=== PATIENT | female | born 1950 | race Caucasian/White ===

== ENCOUNTER → 2020-12-15 07:50 | Outpatient (BNVA) | payer SELFPAY | PROVIDERS: Family Provider Internal Medicine; Visit Provider Internal Medicine | DX: I10 Essential (primary) hypertension (principal); F03.90 Unspecified dementia, unspecified severity, without behavioral disturbance, psychotic disturbance, mood disturbance, and anxiety; Z01.812 Encounter for preprocedural laboratory examination; E03.9 Hypothyroidism, unspecified | CPT/HCPCS: 80053; 82607; 82746; 84443; 85025; 87635 ==

== ENCOUNTER 2023-03-11 17:49 | Inpatient (IN) | payer MEDICARE, MEDICAID, SELFPAY ==
[2023-03-11] VITALS (31 sets, daily range): BP systolic 117–152; BP diastolic 79–110; PULSE 89–123; RESP 17–39; O2SAT 96–100; BMI 16.9
--- NOTE | 2023-03-11 17:52 | W.ED.SOB ---
HPI - SOB/Dyspnea General: Chief Complaint: Shortness of Breath/Dyspnea Stated Complaint: RESPIRATORY DISTRESS/ POSSIBLE ASPIRATION Time Seen by Provider: 03/11/23 17:52 Limitations: altered mental status History of Present Illness: HPI Narrative: Ms. Ortega is a 72-year-old lady with reported history of dementia presenting to the emergency department for respiratory symptoms. The patient herself appears to regard appropriately however does not appear to understand or answer questions. She apparently was drinking a protein shake and later was noted to have emesis with possible aspiration. Initially low oxygen saturations however improved on supplemental oxygen and wean down to 2 L via nasal cannula. Patient has no reported baseline oxygen requirement. History otherwise limited by patient mental state. Review of Systems General: Reports: ROS unobtainable due to medical condition and ROS unobtainable due to mental status PFSH ED PFSH: Medical History Aspiration pneumonia At high risk for aspiration Hypertension Hypothyroid long-term resident Surgical History No pertinent past surgical history Family History Other Diabetes Heart disease Social History Smoking and tobacco status: never smoked Alcohol intake: former Physical Exam Const: COMMON NORMALS: alert GENERAL APPEARANCE: cooperative, well developed and ill appearing HENMT: COMMON NORMALS: normocephalic and atraumatic HEAD & SCALP: normocephalic and atraumatic Eye: COMMON NORMALS: conjunctivae normal CONJUNCTIVA: Yes conjunctivae normal SCLERA: sclerae normal Neck/C-Spine: COMMON NORMALS: supple GENERAL: Yes trachea midline Resp: EFFORT & INSPECTION: Yes tachypneic AUSCULTATION: rhonchi Cardio: COMMON NORMALS: regular rate and regular rhythm RATE: regular rate and tachycardic RHYTHM: regular rhythm GI: COMMON NORMALS: Soft to palpation PALPATION: Yes Soft to palpation and No Tenderness to palpation present (GI) PERCUSSION: normal to percussion Extremity: GENERAL: Yes normal exam except as noted and No edema Neuro: COMMON NORMALS: moves all extremities SENSORIUM/ORIENTATION: Yes alert and Yes Orientation impaired Psych: MEMORY/COGNITION: Yes memory grossly impaired and Yes cognition grossly impaired Course Vital Signs: Vital signs: Vital Signs Temperature 99.0 F 04/20/23 19:43 Pulse Rate 60 03/14/23 21:03 Respiratory Rate 16 03/14/23 21:03 Blood Pressure 167/84 03/14/23 19:43 Pulse Oximetry 98 03/14/23 21:03 Oxygen Delivery Me thod Room Air 03/14/23 21:03 Oxygen Flow Rate 1 03/13/23 08:51 MDM - SOB/Dyspnea Medical Decision Making 72-year-old lady presenting with altered mental status and concern over aspiration. She is tachypneic, requiring oxygen, and tachycardic with chronically ill appearance on exam. EKG demonstrates sinus tachycardia, normal axis and intervals, no STEMI. Labs with no significant hematologic abnormalities. ABG with respiratory alkalosis. Metabolic panel with dehydration and hypokalemia. Initial lactic acid is mildly elevated. Negative range 2 or delta troponin. Urinalysis pending Head CT negative for acute intracranial pathology. Chest x-ray unrevealing of etiology of symptoms. CT imaging with no PE, she does have pneumonia likely aspiration pneumonia. During ED course patient treated with IV fluids and antibiotics. Upon further clarification of clinical history with family she is nonverbal at baseline. She has chronic issues of aspiration. Challenging situation given baseline mental status however admission is most appropriate given new oxygen requirement and findings on exam and laboratory studies. Family is agreeable. The results of ED evaluation were discussed with the family including plan for admission due to requirement for level of care not available if discharged to prevent significant worsening/deterioration. Family agreeable with plan. Discussed with hospitalist service who was agreeable to admit patient. Medical Records I reviewed the patient's medical records. Lab Data I reviewed the patient's lab results. 03/13/23 05:23 03/13/23 05:23 Labs/Radiology: Radiology Impressions Chest X-Ray 03/11/23 17:58 IMPRESSION: Vague densities at medial left base raise question of retrocardiac abnormality; PA and lateral views may be helpful in improving evaluation of this region. Chest CTA 03/11/23 18:34 IMPRESSION: 1. No pulmonary embolus identified. 2. Ohkf-zxsvecm-mrfe-right lower lobe known pneumonia with bronchial wall thickening in distal bronchial mucoid impaction. Correlate for possible aspiration clinically. Head CT 03/11/23 18:34 IMPRESSION: Left maxillary sinus opacification with suspicion of mucocele. Generalized cerebral atrophy relatively prominent for age. No acute intracranial findings. Right middle cranial fossa arachnoid cyst unchanged. Laboratory Results WBC 8.6 10^3/uL (4.0-10.0) 03/11/23 17: RBC 5.07 10^6/uL (4.1-5.3) 03/11/23 17: Hgb 15.0 g/dL (11.5-15.3) 03/11/23: Hct 49.5 % (37.0-47.0) H 03/11/23 17: MCV 97.6 fl (81-99) 03/11/23: MCH 29.6 pg (28.0-34.0) 03/11/23: MCHC 30.3 g/dL (30.0-36.0) 03/11/23: RDW 13.4 % (12.1-15.1) 03/11/23: Plt Count 492 10^3/cmm (130-400) H 03/11/23: MPV 10.1 fL (7.4-10.4) 03/11/23: Neut % (Auto) 60.9 % 03/11/23: Lymph % (Auto) 31.4 % 03/11/23: [place] % (Auto) 5.8 % 03/11/23 17: Eos % (Auto) 0.8 % 03/11/23: Baso % (Auto) 0.6 % 03/11/23: Neut # (Auto) 5.24 10^3/uL (1.8-7.7) 03/11/23: Lymph # (Auto) 2.7 10^3/uL (0.8-4.8) 03/11/23: [place] # (Auto) 0.5 10^3/uL (0.2-0.9) 03/11/23: Eos # (Auto) 0.1 10^3/uL (0.0-0.8) 03/11/23 17: Baso # (Auto) 0.1 10^3/uL (0.0-0.1) 03/11/23:33 Nucleated RBC % (auto) 0 % 03/11/23 17:33 Nucleated RBCs # 0.0 /100WBC 03/11/23 17:33 Specimen Type Arterial 03/11/23 18:05 Sample Site Brachial, left 03/11/23 18:05 ABG pH 7.48 (7.35-7.45) H 03/11/23 18:05 ABG pCO2 35.5 mmHg (35-45) 03/11/23 18:05 ABG pO2 93.2 mmHg (80.0-100.0) 03/11/23 18:05 ABG HCO3 26.6 mmol/L (22-26) H 03/11/23 18:05 ABG Base Excess 3.3 mmol/L (-2.0-2.0) H 03/11/23 18:05 Kem Test N/a 03/11/23 18:05 Hematocrit 46.8 % (37-47) 03/11/23 18:05 O2 Delivery Device Nc 03/11/23 18:05 O2 Liters/Min 2.0 % 03/11/23 18:05 FiO2 28.0 % 03/11/23 18:05 Hotel Recreational Facilities Manager ID rm 03/11/23 18:05 Sodium 151 mmol/L (136-145) H 03/11/23 17:33 Potassium 3.2 mmol/L (3.5-5.1) L 03/11/23 17:33 Chloride 113 mmol/L (98-107) H 03/11/23 17:33 Carbon Dioxide 26 mmol/L (22-29) 03/11/23 17:33 Anion Gap 15.2 (5-19) 03/11/23 17:33 BUN 29 mg/dL (8-23) H 03/11/23 17:33 Creatinine 0.7 mg/dL (0.5-0.9) 03/11/23 17:33 GFR Calculation Not Reportable 03/11/23 17:33 Glucose 116 mg/dL (65-115) H 03/11/23 17:33 POC Glucose 103 mg/dL (70-110) 03/11/23 18:10 Calculated Osmolality 319 mOsm/kg (285-295) H 03/11/23 17:33 Lactate 2.3 mmol/L (0.5-2.2) H 03/11/23 19:58 Calcium 9.7 mg/dL (8.5-10.5) 03/11/23 17:33 Total Bilirubin 0.4 mg/dL (0.15-1.2) 03/11/23 17:33 AST 16 U/L (0-32) 03/11/23 17:33 ALT 23 U/L (0-33) 03/11/23 17:33 Alkaline Phosphatase 101 U/L (35-105) 03/11/23 17:33 Troponin T Baseline 17 ng/L (0-10) H 03/11/23 17:33 Troponin T 120 Minute 12.46 ng/L (0-10) H 03/11/23 19:58 Delta Troponin T -4.54 ABS# (0-10) L 03/11/23 19:58 C-Reactive Protein 12.3 mg/L (0.0-4.9) H 03/11/23 17:33 NT-Pro-B Natriuret Pep 105 pg/mL (0-125) 03/11/23 17:33 Total Protein 7.0 g/dL (6.6-8.7) 03/11/23 17:33 Albumin 3.6 g/dL (3.5-5.2) 03/11/23 17:33 Globulin 3.4 g/dL (1.3-4.6) 03/11/23 17:33 Procalcitonin 0.08 ng/mL (0-0.5) 03/11/23 17:33 TSH 2.76 uIU/mL (0.27-4.20) 03/11/23 17:33 Discharge Plan Discharge Patient Disposition: Admitted As Inpatient Admit Provider: Gerardo Puente Clinical Impression: Aspiration pneumonia, Hypoxia, Dehydration Condition: Stable Coding Level of Care Code ED Ship Engineer for [place]
--- NOTE | 2023-03-11 17:58 | XRR_ITS ---
PROCEDURE INFORMATION: Exam: XR Chest Exam date and time: 03/11/2023 6:28 PM Age: 72 years old Clinical indication: Pain; Other: Respiratory distress; Additional info: SOB TECHNIQUE: Imaging protocol: Radiologic exam of the chest. Views: 1 view. COMPARISON: No relevant prior studies available. FINDINGS: Lungs: There are findings raising consideration for emphysema. Vague densities at medial left base raise question of retrocardiac abnormality; PA and lateral views may be helpful in improving evaluation of this region. Pleural spaces: Unremarkable. No pleural effusion. No pneumothorax. Heart/Mediastinum: Unremarkable. No cardiomegaly. Bones/joints: No acute findings. XR/XR chest 1V portable [id number] IMPRESSION: Vague densities at medial left base raise question of retrocardiac abnormality; PA and lateral views may be helpful in improving evaluation of this region.
[2023-03-11 18:15] LABS: Glucose Point of Care 103 mg/dL (70-110)
[2023-03-11 18:18] LABS: ABG PCO2 35.5 mmHg (35-45); ABG PH Result 7.48 (7.35-7.45); Arterial Blood Gas Hematocrit 46.8 % (37-47); Base Excess ABG 3.3 mmol/L (-2.0-2.0); Blood Gas Sample Site Brachial, left; Blood Gas Sample Type Arterial; HCO3 ABG 26.6 mmol/L (22-26); Oxygen Device NC; PO2 ABG 93.2 mmHg (80.0-100.0)
--- NOTE | 2023-03-11 18:25 | ECG_ITS ---
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 Measurements Intervals [place] Rate: 106 P: 83 [place]: 137 QRS: -5 QRSD: 85 T: 71 QT: 329 QTc: 439 Interpretive Statements SINUS TACHYCARDIA POSSIBLE LEFT ATRIAL ENLARGEMENT [-0.1mV P-WAVE IN V1/V2] POSSIBLE ANTERIOR MYOCARDIAL INFARCTION , PROBABLY OLD [30 ms Q WAVE IN V3/V4, OR R < 0.2 mV IN V4] ABNORMAL RHYTHM ECG No previous ECG available for comparison Electronically Signed On 03-12-2023 14:50:19 CDT by Sly Rizvi M.D. [id number]
--- NOTE | 2023-03-11 18:34 | CTR_ITS ---
PROCEDURE INFORMATION: Exam: CTA Chest With Contrast Exam date and time: 03/11/2023 8:13 PM Age: 72 years old Clinical indication: Tachypnea; Additional info: Hypoxemia, tachycardia, immobility TECHNIQUE: Imaging protocol: Computed tomographic angiography of the chest with contrast. 3D rendering (Not supervised by radiologist): MIP and/or 3D reconstructed images were created by the technologist. Radiation optimization: All CT scans at this facility use at least one of these dose optimization techniques: automated exposure control; mA and/or kV adjustment per patient size (includes targeted exams where dose is matched to clinical indication); or iterative reconstruction. Contrast material: OMNI 350; Contrast volume: 100 ml; Contrast route: INTRAVENOUS (IV); REPORTING DATA: Count of CT and Cardiac NM exams in prior 12 months: This patient has received [address] and 0 known cardiac nuclear medicine studies in the 12 months prior to the current study. COMPARISON: CR (CHEST, ) 03/11/2023 6:28 PM RADIATION DOSE METRICS: Total DLP (mGy-cm): 193.87 FINDINGS: Pulmonary arteries: No central or segmental PE is present. Peripheral PE assessment is limited due to artifact. Aorta: Unremarkable. No aortic aneurysm. No aortic dissection. Lungs: There is debris in the left mainstem bronchus and trachea. There is left lower lobe bronchial mucoid impaction with bronchial wall thickening. Left lower lobe infiltrate is present with patchy posterior right lower lobe infiltrate also seen. Left upper lobe calcified granuloma. Pleural spaces: Unremarkable. No pneumothorax. No pleural effusion. Heart: Small-sized pericardial effusion. Coronary arteries: Moderate coronary artery atherosclerosis. Lymph nodes: Unremarkable. No enlarged lymph nodes. Spleen: Splenic granulomata. Bones/joints: T7 moderate anterior compression fracture is age-indeterminate and may be chronic. Soft tissues: Unremarkable. CT/CT angio chest PE protcl [id number] IMPRESSION: 1. No pulmonary embolus identified. 2. Dacv-lzevhna-hzbv-right lower lobe known pneumonia with bronchial wall thickening in distal bronchial mucoid impaction. Correlate for possible aspiration clinically.
--- NOTE | 2023-03-11 18:34 | CTR_ITS ---
PROCEDURE INFORMATION: Exam: CT Head Without Contrast Exam date and time: 03/11/2023 8:09 PM Age: 72 years old Clinical indication: Altered mental status/memory loss; Additional info: AMS TECHNIQUE: Imaging protocol: Computed tomography of the head without contrast. Radiation optimization: All CT scans at this facility use at least one of these dose optimization techniques: automated exposure control; mA and/or kV adjustment per patient size (includes targeted exams where dose is matched to clinical indication); or iterative reconstruction. REPORTING DATA: Count of CT and Cardiac NM exams in prior 12 months: This patient has received [address] and 0 known cardiac nuclear medicine studies in the 12 months prior to the current study. COMPARISON: MR head wo/w con [id number] 11/07/2018 1:44 PM RADIATION DOSE METRICS: Total DLP (mGy-cm): 1151.88 FINDINGS: Brain: Arachnoid cyst suggested at anterior right middle cranial fossa is unchanged. Generalized cerebral atrophy prominent for age. No findings of intracranial hemorrhage. Cerebral ventricles: Mild increase in ventriculomegaly likely relating to progression of atrophy. Paranasal sinuses: Left maxillary sinus is opacified and there is medial bulging of medial wall of left maxillary sinus. Mastoid air cells: Visualized mastoid air cells are well aerated. Bones/joints: No acute findings. Soft tissues: Unremarkable. CT/CT head wo con* [id number] IMPRESSION: Left maxillary sinus opacification with suspicion of mucocele. Generalized cerebral atrophy relatively prominent for age. No acute intracranial findings. Right middle cranial fossa arachnoid cyst unchanged.
[2023-03-11 18:37] LABS: Basophils # 0.1 10^3/uL (0.0-0.1); Basophils % 0.6 %; Eosinophils # 0.1 10^3/uL (0.0-0.8); Eosinophils % 0.8 %; Hematocrit 49.5 % (37.0-47.0); Lymphocytes # 2.7 10^3/uL (0.8-4.8); Lymphocytes % 31.4 %; Mean Corpuscular HGB Conc 30.3 g/dL (30.0-36.0); Mean Corpuscular Hemoglobin 29.6 pg (28.0-34.0); Mean Corpuscular Volume 97.6 fl (81-99); Mean Platelet Volume 10.1 fL (7.4-10.4); Monocytes # 0.5 10^3/uL (0.2-0.9); Monocytes % 5.8 %; Neutrophils # 5.24 10^3/uL (1.8-7.7); Neutrophils % 60.9 %; Nucleated Red Blood Cells % 0 %; Platelet Count 492 10^3/cmm (130-400); Red Blood Count 5.07 10^6/uL (4.1-5.3); Red Cell Distribution Width 13.4 % (12.1-15.1); White Blood Count 8.6 10^3/uL (4.0-10.0)
[2023-03-11 18:55] LABS: Troponin(5th) Baseline 17 ng/L (0-10)
[2023-03-11 19:03] LABS: NT Pro B Type Natriuretic Pept 105 pg/mL (0-125); Procalcitonin 0.08 ng/mL (0-0.5); Thyroid Stimulating Hormone 2.76 uIU/mL (0.27-4.20)
[2023-03-11 19:22] LABS: Alanine Aminotransferase 23 U/L (0-33); Albumin Level 3.6 g/dL (3.5-5.2); Alkaline Phosphatase 101 U/L (35-105); Anion Gap 15.2 (5-19); Aspartate Amino Transferase 16 U/L (0-32); Blood Urea Nitrogen 29 mg/dL (8-23); C Reactive Protein 12.3 mg/L (0.0-4.9); Calcium 9.7 mg/dL (8.5-10.5); Carbon Dioxide 26 mmol/L (22-29); Chloride 113 mmol/L (98-107); Globulin 3.4 g/dL (1.3-4.6); Glucose 116 mg/dL (65-115); Osmolality Calculated 319 mOsm/kg (285-295); Potassium 3.2 mmol/L (3.5-5.1); Sodium 151 mmol/L (136-145); Total Bilirubin 0.4 mg/dL (0.15-1.2)
[2023-03-11] MEDS: iohexol 350 mg/mL 500 mL Btl (per mL) IV (20:19)
[2023-03-11] MEDS: lactated ringers 1,000 ML 999 ML IV (20:30)
[2023-03-11 20:50] LABS: Lactate (Lactic Acid level) 2.3 mmol/L (0.5-2.2)
[2023-03-11 20:52] LABS: Troponin 5 2HR 12.46 ng/L (0-10); Troponin 5 2HR Delta -4.54 ABS# (0-10)
[2023-03-11] MEDS: cefTRIAXone 1,000 MG in sodium chloride 0.9% (plus) 50 ML 100 MG IV (21:56)
--- NOTE | 2023-03-11 22:39 | PM.HP ---
Providers/Chief Complaint Admitting Physician: Gerardo Puente MD Chief Complaint: RESPIRATORY DISTRESS/ POSSIBLE ASPIRATION History of Present Illness Brenda Ortega is a 72 year old female with as past medical history of hypothyroidism, htn, dementia, non verbal at baseline, who is on dysphagia diet, is somewhat mobile at longterm, who presents of [facility] for hypoxia and shortness of breath. Patient is nonverbal at baseline, history was obtained by family membars at [facility], according to family members patient was [place] [facility] [place], [facility] due to concerns for hypoxia and shortness of breath and elevated blood pressure. No recent falls, or uti, she has a dysphasia diet, but recenyl she primarily has been taking her meal through a straw, and has a worsening appetite. Patient family has agreed on no peg tube. Review of Systems General: Reports: ROS unobtainable due to medical condition and ROS unobtainable due to mental status Medications/Allergies Home Medications Medication Instructions Recorded Confirmed Last Taken Type losartan 100 mg tablet 100 mg PO DAILY #90 tabs 03/30/20 12/15/20 Unknown Rx memantine 10 mg tablet 10 mg PO BID #60 tabs 05/25/20 12/15/20 Unknown Rx amlodipine 2.5 mg tablet 2.5 mg PO DAILY #90 tabs 12/15/20 12/15/20 Unknown Rx levothyroxine 88 mcg tablet 88 mcg PO DAILY #30 tabs 12/21/20 Unknown Rx Allergies Allergy/AdvReac Type Severity Reaction Status Date / Time No Known Allergies Allergy Verified 12/15/20 11:01 PFSH Acute PFSH: Medical History (Updated 03/11/23 @ 22:43 by Gerardo Puente MD) Hypothyroid Surgical History (Updated 03/11/23 @ 22:40 by Gerardo Puente MD) No pertinent past surgical history Family History (Updated 12/15/20 @ 11:06 by RENATA Ramírez) Other Diabetes Heart disease Social History (Updated 12/15/20 @ 11:06 by RENATA Ramírez) Smoking and tobacco status: never smoked Alcohol intake: former Vitals/I&O/Wt Last Vital Signs Pulse 89 03/11/23 20:30 Resp 23 H 03/11/23 20:30 BP 152/110 03/11/23 20:30 Pulse Ox 99 03/11/23 20:30 O2 Del Method Nasal Cannula 03/11/23 18:15 O2 Flow Rate 2 03/11/23 18:15 Physical Exam Const: COMMON NORMALS: no acute distress Eye: COMMON NORMALS: Equal, round and reactive pupils present Neck/C-Spine: COMMON NORMALS: no lymphadenopathy Resp: COMMON NORMALS: normal respiratory effort, No retractions and No use of accessory muscles AUSCULTATION: wheezes Cardio: COMMON NORMALS: regular rate, regular rhythm, S1 normal heart sound present and S2 normal heart sound present RATE: regular rate RHYTHM: regular rhythm HEART SOUNDS: S1 normal heart sound present and S2 normal heart sound present GI: COMMON NORMALS: Normal to inspection, nondistended, normoactive bowel sounds present, Soft to palpation and non-tender PALPATION: Yes Soft to palpation Extremity: COMMON NORMALS: no pedal edema Neuro: OTHER: doesnot follow neurologic testing Data 03/11/23 17:33 03/11/23 17:33 A&P Assessment and plan (1) Aspiration pneumonia: (2) Hypoxia: (3) Dehydration: (4) Hyponatremia: (5) Hypokalemia: (6) NSTEMI (non-ST elevated myocardial infarction): (7) Dementia: Plan Aspiration pneumonia -Aspiration precautions -Keep n.p.o. -Continue Zosyn -Speech therapy eval Hypoxia secondary to aspiration ammonia -Oxygen therapy -Zosyn -DuoNeb as needed Dehydration -IV fluids Hyponatremia -Likely sec to dehydration IV fluids Hypokalemia -Received potassium replacement in the emergency room -Elevated troponins, likely from respiratory failure DNR/DNI Lovenox for DVT prophylaxis Attestations Medical Necessity Statement*: patient requires hospitalization for aspiration pneumonia,hypoxia, inpatient, greater than 2 midnights Diagnoses Aspiration pneumonia J69.0 Hypoxia R09.02 Dehydration E86.0 Hyponatremia E87.1 Hypokalemia E87.6 NSTEMI (non-ST elevated myocardial infarction) I21.4 Dementia F03.90
[2023-03-11] MEDS: doxycycline 100 MG in sodium chloride 0.9% (plus) 100 ML IV (22:40)
[2023-03-11] MEDS: sodium chloride 0.9% 1,000 ML 100 ML IV (22:47)
[2023-03-11] MEDS: lidocaine 1% 5 ML in potassium chloride premix 100 ML 26.25 ML IV (22:49)
--- NOTE | 2023-03-11 23:59 | ECG_ITS ---
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 Measurements Intervals [place] Rate: 77 P: 15 CO: 160 QRS: 39 QRSD: 89 T: 32 QT: 369 QTc: 419 Interpretive Statements SINUS RHYTHM Compared to ECG 03/11/2023 18:25:38 Sinus tachycardia no longer present Myocardial infarct finding no longer present Electronically Signed On 03-12-2023 15:06:00 CDT by Sly Rizvi M.D. [id number]
[2023-03-12] VITALS (14 sets, daily range): BP systolic 144–177; BP diastolic 73–91; PULSE 57–79; RESP 15–18; TEMP 36.5–36.8; O2SAT 95–100
[2023-03-12 00:01] LABS: Troponin 5 6HR 18.19 ng/L (0-10); Troponin 5 6HR Delta 1.19 ng/L (0-12)
[2023-03-12] MEDS: piperacillin-tazobactam 3.375 GM in sodium chloride 0.9% (plus) 50 ML IV ×3 (01:25→18:06)
[2023-03-12] MEDS: enoxaparin 40 mg/0.4 mL Syringe SUBCUT ×2 (01:25→22:01)
[2023-03-12] MEDS: pantoprazole 40 mg SDV IVP ×2 (01:25→22:02)
--- NOTE | 2023-03-12 03:23 | ECG_ITS ---
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 Measurements Intervals [place] Rate: 71 P: 0 NE: 0 QRS: 34 QRSD: 89 T: 211 QT: 484 QTc: 529 Interpretive Statements SUPRAVENTRICULAR RHYTHM ST DEVIATION AND MARKED T-WAVE ABNORMALITY, CONSIDER INFERIOR ISCHEMIA [-0.5+ mV T-WAVE IN II/aVF] Compared to ECG 03/12/2023 00:32:14 Supraventricular rhythm now present T-wave abnormality now present Possible ischemia now present Sinus rhythm no longer present Electronically Signed On 03-12-2023 15:05:51 CDT by Sly Rizvi M.D. [email or web address]/store/[id number]
[2023-03-12 03:34] LABS: Adenovirus Detected (NOT DETECT); Chlamydia Pneumoniae Not Detected (NOT DETECT); Coronavirus 229E,HKU1,NL63,OC4 Not Detected (NOT DETECT); Human Metapneumovirus Not Detected (NOT DETECT); Human Rhinovirus/Enterovirus Not Detected (NOT DETECT); Influenza A Not Detected (NOT DETECT); Influenza A H1 Not Detected (NOT DETECT); Influenza A H1-2009 Not Detected (NOT DETECT); Influenza A H3 Not Detected (NOT DETECT); Influenza B Not Detected (NOT DETECT); Mycoplasma Pneumoniae Not Detected (NOT DETECT); Parainfluenza Virus Type 1 Not Detected (NOT DETECT); Parainfluenza Virus Type 2 Not Detected (NOT DETECT); Parainfluenza Virus Type 3 Not Detected (NOT DETECT); Parainfluenza Virus Type 4 Not Detected (NOT DETECT); Respiratory Syncytial Virus A Not Detected (NOT DETECT); Respiratory Syncytial Virus B Not Detected (NOT DETECT); SARS-COV-2 Not Detected (NOT DETECT)
[2023-03-12 05:50] LABS: Basophils % 0.3 %; Eosinophils # 0.1 10^3/uL (0.0-0.8); Eosinophils % 0.5 %; Hematocrit 42.2 % (37.0-47.0); Hemoglobin 12.6 g/dL (11.5-15.3); Lymphocytes # 2.8 10^3/uL (0.8-4.8); Lymphocytes % 26.8 %; Mean Corpuscular HGB Conc 29.9 g/dL (30.0-36.0); Mean Corpuscular Hemoglobin 29.2 pg (28.0-34.0); Mean Corpuscular Volume 97.9 fl (81-99); Mean Platelet Volume 9.9 fL (7.4-10.4); Monocytes # 0.6 10^3/uL (0.2-0.9); Monocytes % 5.3 %; Neutrophils # 6.89 10^3/uL (1.8-7.7); Neutrophils % 66.8 %; Nucleated Red Blood Cells % 0 %; Platelet Count 365 10^3/cmm (130-400); Red Blood Count 4.31 10^6/uL (4.1-5.3); Red Cell Distribution Width 13.3 % (12.1-15.1); White Blood Count 10.3 10^3/uL (4.0-10.0)
[2023-03-12 06:16] LABS: Anion Gap 9.9 (5-19); Blood Urea Nitrogen 16 mg/dL (8-23); Calcium 8.7 mg/dL (8.5-10.5); Carbon Dioxide 24 mmol/L (22-29); Chloride 119 mmol/L (98-107); Glucose 90 mg/dL (65-115); Magnesium 2.2 mg/dL (1.7-2.3); Osmolality Calculated 309 mOsm/kg (285-295); Phosphorus 2.2 mg/dL (2.5-4.5); Potassium 3.9 mmol/L (3.5-5.1); Sodium 149 mmol/L (136-145); Thyroid Stimulating Hormone 2.51 uIU/mL (0.27-4.20)
--- NOTE | 2023-03-12 08:09 | PC.PHAR ---
pt is from [facility] [phone] from [facility] states she will fax mar and tar
[2023-03-12] MEDS: sodium chloride 0.9% 1,000 ML 100 ML IV (08:55)
[2023-03-12] MEDS: levothyroxine 100 mcg SDV 40 MCG IVP (10:12)
--- NOTE | 2023-03-12 10:38 | PC.CHAP ---
Pastoral Care Encounter/Spiritual Assessment Type of Contact [] Declined stock sorter visit [] Patient/Family/Request visit [] Outpatient visit [] Follow-up visit [] Physician referral [] Code/Alert [x] Routine visit [] Staff referral [] Actively dying [] Patient sleeping [x] Family support [] [] Out of room [] Palliative care [] [] Receiving care in room [] Pre-surgical visit [] Trauma [] Long length of stay [] ICU visit [] Other: Relational/Emotional Strength [x] Patient feels connected with others/family/visitors/staff [] Distress [] Loneliness/isolation [] Abandonment Spirituality of Patient [x] Person of Jenni [] Attends Muslim of their Jenni [x] Believes in Prayer [] Reads Bible or Jehovah'S Witness materials [] There are Spiritual issues to be addressed 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 Interventions [x] Prayer [] Active listening [] Non-anxious presence [x] Spiritual/emotional support [] Crisis/trauma care [] Spiritual counseling [] Bereavement support [] Provided bereavement packet [] Provided Bible/devotional materials [] Provided toy/stuffed animal, coloring book to patient or family member [] Provided Communion [] Anointing/Rumely [] Salvation [] Completed spiritual assessment [] Other: Impact on Illness or Injury [] Angry [] Fearful [] Anxious [] Often cries [] Exhaustion [] Unable to work [] Unable to attend adventist [] Unable to walk/stand [] Unable to read [] Unable to drive [] Unable to eat/drink [] Unable to sleep [] Unable to be with family [] Patient intubated [] Other: Summary Time spent with patient 5 min
[2023-03-12 12:18] LABS: Iron 82 ug/dL (37-145); Percent Saturation 46.5 % (20-50); Total Iron Binding Capacity 176 mcg/dl; Unsaturated Iron Binding 94 ug/dL (112-347)
[2023-03-12 12:33] LABS: Vitamin B12 520 pg/mL (232-1245)
[2023-03-12 12:34] LABS: Folate Level 8.1 ng/mL (4.8-37.3)
[2023-03-12] MEDS: ipratropium-albuterol 3 mL Neb INHALATION ×2 (14:07→21:28)
--- NOTE | 2023-03-12 14:55 | PC.NURSE ---
This nurse assessed what was possible on the NIH stroke scale. Some of the scale was unable to be assessed due to patient being nonverbal at baseline.
--- NOTE | 2023-03-12 16:56 | PM.PN ---
Subjective Subjective: Admitted overnight. H&P and labs appreciated. Examination patient laying comfortably in bed. Awake alert but nonverbal which is patient's baseline. Saturating well on 2 L. Has remained hemodynamically stable and afebrile. Blood pressure slightly elevated. Vitals/I&O/Wt Last Vital Signs Temp 98.0 F 03/12/23 12:00 Pulse 60 03/12/23 14:14 Resp 18 03/12/23 14:11 BP 175/80 03/12/23 12:00 Pulse Ox 100 03/12/23 14:11 O2 Del Method Nasal Cannula 03/12/23 14:11 O2 Flow Rate 2 03/12/23 14:11 03/12/23 03/12/23 03/12/23 06:59 14:59 22:59 Intake Total 255 / 1305 1336.667 / 1336.667 Balance 255 / 1305 1336.667 / 1336.667 Weight last 48 hrs Weight 46.266 kg Physical Exam Const: COMMON NORMALS: no acute distress Eye: COMMON NORMALS: Equal, round and reactive pupils present PUPIL: Yes Equal, round and reactive pupils present Neck/C-Spine: COMMON NORMALS: no lymphadenopathy Resp: COMMON NORMALS: normal respiratory effort, No retractions and No use of accessory muscles AUSCULTATION: wheezes Cardio: COMMON NORMALS: regular rate, regular rhythm, S1 normal heart sound present and S2 normal heart sound present RATE: regular rate RHYTHM: regular rhythm HEART SOUNDS: S1 normal heart sound present and S2 normal heart sound present GI: COMMON NORMALS: Normal to inspection, nondistended, normoactive bowel sounds present, Soft to palpation and non-tender PALPATION: Yes Soft to palpation Extremity: COMMON NORMALS: no pedal edema Neuro: OTHER: doesnot follow neurologic testing Data 03/12/23 05:23 03/12/23 05:23 A&P Assessment and plan (1) Hypoxia: In setting of aspiration pneumonia and adenovirus infection. Keep n.p.o. for now. Oxygen supplementation keeping saturation over 88%. Check MRSA swab, urine Legionella, bacterial antigen, urinalysis. Appreciate CTA results. PE ruled out. Continue with Zosyn. (2) Aspiration pneumonia: Chronic. On liquid diet at home. As per goals of care in the past no PEG tube. N.p.o. for now. (3) Adenovirus infect: DuoNebs every 6 hours, budesonide twice daily. Pulmonary toilet. Supportive care. (4) Hypernatremia: Most likely in setting of poor oral intake. Switch to D5 NS at 75 cc/h. Monitor BMP daily for now. (5) Dehydration: (6) Hypokalemia: Repleted. (7) Dementia: Plan Elevated troponins: Most likely in setting of type II CA. DNR/DNI Lovenox for DVT prophylaxis Attestations Medical Necessity Statement*: Requires further hospitalization for management of hypoxia in setting of aspiration pneumonia, adenovirus infection, hypernatremia Coding Level of Care Code 21040 High MDM includes number and complexity of problems actively addressed during encounter, amount and/or complexity of data reviewed/ordered (Monitoring sodium changes as per IV fluids) [ previous or external records, resulted lab(s)/test(s), ordered lab(s)/test(s), independent historian, independent test interpretation and other healthcare professional discussion] and described risk of complication, morbidity or mortality of management as documented Diagnoses Hypoxia R09.02 Aspiration pneumonia J69.0 Adenovirus infect B34.0 Hypernatremia E87.0 Dehydration E86.0 Hypokalemia E87.6 Dementia F03.90
[2023-03-12] MEDS: dextrose 5%-sod chloride 0.9% 1,000 ML 75 ML IV (18:06)
[2023-03-12 19:41] LABS: Bilirubin Urine Neg (Negative); Blood Urine 2+ (Negative); Glucose Urine UA Norm (Normal); Ketones Urine Negative (Negative); Nitrate Urine Negative (Negative); Protein Urine Trace (Negative); Urine Appearance Cloudy (CLEAR); Urine Color Yellow (Yellow); pH Urine 8 (5-7)
[2023-03-12 19:42] LABS: Add Urine Culture? Yes; Add Urine Microscopic? YES; Bacteria Urine 1+ /hpf; Leukocyte Esterase Urine 2+ (Negative); RBC Urine 15-25 /hpf (0-2); Squamous Epithelial Cell Urine 0-4 /hpf (0-5); Sulfosalicylic Acid Urine Negative (Negative); Urobilinogen Urine Neg (Negative); WBC Urine TOO NUMEROUS TO CNT /hpf (0-5)
[2023-03-12] MEDS: budesonide 0.5 mg/2 mL Neb INHALATION (21:28)
[2023-03-13] VITALS (14 sets, daily range): BP systolic 130–166; BP diastolic 68–83; PULSE 50–83; RESP 16–18; TEMP 36.4–37.4; O2SAT 94–99
[2023-03-13] MEDS: piperacillin-tazobactam 3.375 GM in sodium chloride 0.9% (plus) 50 ML IV ×3 (00:44→16:44)
[2023-03-13] MEDS: ipratropium-albuterol 3 mL Neb INHALATION ×4 (03:18→20:15)
[2023-03-13 05:31] LABS: Basophils # 0.1 10^3/uL (0.0-0.1); Basophils % 0.8 %; Eosinophils # 0.2 10^3/uL (0.0-0.8); Eosinophils % 2.6 %; Hematocrit 44.7 % (37.0-47.0); Hemoglobin 13.5 g/dL (11.5-15.3); Lymphocytes % 39.6 %; Mean Corpuscular HGB Conc 30.2 g/dL (30.0-36.0); Mean Corpuscular Hemoglobin 29.7 pg (28.0-34.0); Mean Corpuscular Volume 98.2 fl (81-99); Mean Platelet Volume 9.7 fL (7.4-10.4); Monocytes # 0.5 10^3/uL (0.2-0.9); Neutrophils # 3.76 10^3/uL (1.8-7.7); Neutrophils % 50.5 %; Nucleated Red Blood Cells % 0 %; Platelet Count 368 10^3/cmm (130-400); Red Blood Count 4.55 10^6/uL (4.1-5.3); White Blood Count 7.5 10^3/uL (4.0-10.0)
[2023-03-13 05:41] LABS: Estmated Average Glucose 91; Hemoglobin A1C 4.8 % (4.0-6.0)
[2023-03-13 06:01] LABS: Alanine Aminotransferase 13 U/L (0-33); Albumin Level 2.8 g/dL (3.5-5.2); Alkaline Phosphatase 84 U/L (35-105); Anion Gap 11.8 (5-19); Aspartate Amino Transferase 13 U/L (0-32); Blood Urea Nitrogen 9 mg/dL (8-23); Calcium 8.7 mg/dL (8.5-10.5); Carbon Dioxide 26 mmol/L (22-29); Chloride 112 mmol/L (98-107); Cholesterol 140 mg/dL (0-200); Globulin 3.1 g/dL (1.3-4.6); Glucose 112 mg/dL (65-115); HDL Cholesterol 35 mg/dL (60-100); LDL Cholesterol Calculated 90 mg/dL (50-129); Osmolality Calculated 301 mOsm/kg (285-295); Potassium 3.8 mmol/L (3.5-5.1); Sodium 146 mmol/L (136-145); Total Bilirubin 1.1 mg/dL (0.15-1.2); Total Protein 5.9 g/dL (6.6-8.7); Triglycerides 76 mg/dL (0-150); VLDL Cholestrol Calculation 15 mg/dL (0-30)
[2023-03-13] MEDS: dextrose 5%-sod chloride 0.9% 1,000 ML 75 ML IV (07:23)
[2023-03-13] MEDS: levothyroxine 100 mcg SDV 40 MCG IVP (10:29)
[2023-03-13 13:11] LABS: Troponin T (5th) Once 16 ng/L (0-10)
[2023-03-13] MEDS: dextrose 5%-sod chloride 0.45% 1,000 ML 75 ML IV (13:52)
--- NOTE | 2023-03-13 16:24 | ECG_ITS ---
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 Measurements Intervals [place] Rate: 63 P: 74 LA: 166 QRS: -2 QRSD: 92 T: 52 QT: 388 QTc: 398 Interpretive Statements SINUS RHYTHM POSSIBLE ANTERIOR MYOCARDIAL INFARCTION , OF INDETERMINATE AGE [30 ms Q WAVE IN V3/V4, OR R < 0.2 mV IN V4] Compared to ECG 03/12/2023 03:23:45 Myocardial infarct finding now present Supraventricular rhythm no longer present T-wave abnormality no longer present Possible ischemia no longer present Electronically Signed On 03-15-2023 22:09:44 CDT by Enedelia Ventura M.D. [email or web address] hospitalPotbelly Sandwich Worksbar[id number]
--- NOTE | 2023-03-13 16:24 | PM.PN ---
Subjective Subjective: Patient did have significant bradycardia overnight with heart rates going down to high 30s. Patient remained asymptomatic at her baseline. Today morning heart rates have improved again. Running in high 60s to 70s. Patient remains asymptomatic. On room air. Hemodynamically stable. With caregiver/friend at bedside. Vitals/I&O/Wt Last Vital Signs Temp 98.6 F 03/13/23 11:49 Pulse 68 03/13/23 14:00 Resp 16 03/13/23 13:26 BP 151/73 03/13/23 11:49 Pulse Ox 98 03/13/23 13:26 O2 Del Method Room Air 03/13/23 13:26 O2 Flow Rate 1 03/13/23 08:51 03/13/23 03/13/23 03/13/23 06:59 14:59 22:59 Intake Total 1535.00 / 1535.00 50 / 1585.00 Balance 1535.00 / 1535.00 50 / 1585.00 Weight last 48 hrs Weight 46.266 kg Physical Exam Const: COMMON NORMALS: no acute distress Eye: COMMON NORMALS: Equal, round and reactive pupils present PUPIL: Yes Equal, round and reactive pupils present Neck/C-Spine: COMMON NORMALS: no lymphadenopathy Resp: COMMON NORMALS: normal respiratory effort, No retractions and No use of accessory muscles AUSCULTATION: wheezes Cardio: COMMON NORMALS: regular rate, regular rhythm, S1 normal heart sound present and S2 normal heart sound present RATE: regular rate RHYTHM: regular rhythm HEART SOUNDS: S1 normal heart sound present and S2 normal heart sound present GI: COMMON NORMALS: Normal to inspection, nondistended, normoactive bowel sounds present, Soft to palpation and non-tender PALPATION: Yes Soft to palpation Extremity: COMMON NORMALS: no pedal edema Neuro: OTHER: doesnot follow neurologic testing Data 03/13/23 05:23 03/13/23 05:23 Micro: Microbiology 03/12/23 18:30 MRSA Culture - Final Nose 03/12/23 18:30 Bacterial Antigens - Final Urine Kidney 03/12/23 18:30 Legionella Urinary Antigen - Final Unknown Source A&P Assessment and plan (1) Hypoxia: In setting of aspiration pneumonia and adenovirus infection. Resolved. Keep n.p.o. for now. Appreciate speech evaluation. Patient is at high risk of aspiration with any consistency. Oxygen supplementation keeping saturation over 88%. Check MRSA swab, urine Legionella, bacterial antigen, urinalysis. Appreciate CTA results. PE ruled out. Continue with Zosyn. (2) Aspiration pneumonia: Chronic. On liquid diet at home. As per goals of care in the past no PEG tube. N.p.o. for now. (3) Hypernatremia: Most likely in setting of poor oral intake. Sodium level continues to remain high. Switch to D5 half NS at 75 cc/h. Monitor BMP daily for now. (4) Dehydration: Resolving. Secondary to poor oral intake. (5) Hypokalemia: Repleted. (6) Dementia: (7) Bradycardia: (8) Hypertension: (9) [facility]PC resident: (10) Goals of care, counseling/discussion: Plan Goals of care: Discussed in detail with patient's friend/caregiver at bedside. Patient's son is DPEDNA. He will be available tomorrow for a family meeting for further discussion. Points discussed about that unfortunately patient is always at a high risk of aspiration given her mental status for which she has refused PEG tube in the past along with development of hypernatremia which is from poor oral intake given her significant decline in mentation from advanced dementia. We discussed that unfortunately mental status would not improve and hypernatremia seems to be worsening chronically and with IV fluids which we will continue we will increase for short while but most likely she will develop developed hyponatremia again because of poor oral intake. We discussed about continuing current treatment versus hospice. Friend wants to discuss further in detail with patient's DPOA tomorrow. Plan for family meeting in a.m. tomorrow. Bradycardia: Patient not on any rate limiting medications. Seems to be asymptomatic. Plan for repeat EKG when ongoing bradycardia. Continue to monitor. We will discuss further as per goals for possibility of pacemaker implantation. Hypertension: Not on any antihypertensive at home. Blood pressures trending up to 170 systolics. For now start on hydralazine 10 mg IV every 4 hours as needed for systolic blood pressure more than 160 mmHg. Goal blood pressure less than 140/90 mmHg. Elevated troponins: Most likely in setting of type II ID. Repeat troponin to morning labs. Given bradycardia. DNR/DNI Lovenox for DVT prophylaxis Attestations Medical Necessity Statement*: Requested hospitalization for management of aspiration pneumonitis, adenovirus infection, significant bradycardia, persistent aspiration, hyponatremia in a patient with significant advanced dementia Diagnoses Hypoxia R09.02 Aspiration pneumonia J69.0 Hypernatremia E87.0 Dehydration E86.0 Hypokalemia E87.6 Dementia F03.90 Bradycardia R00.1 Hypertension I10 [facility]PC resident Z59.3 Goals of care, counseling/discussion Z71.89
[2023-03-13] MEDS: budesonide 0.5 mg/2 mL Neb INHALATION (20:15)
[2023-03-13] MEDS: enoxaparin 40 mg/0.4 mL Syringe SUBCUT (22:09)
[2023-03-13] MEDS: pantoprazole 40 mg SDV IVP (22:15)
[2023-03-14] VITALS (13 sets, daily range): BP systolic 138–167; BP diastolic 76–94; PULSE 49–78; RESP 16–18; TEMP 36.6–37.2; O2SAT 90–98
[2023-03-14] MEDS: piperacillin-tazobactam 3.375 GM in sodium chloride 0.9% (plus) 50 ML IV ×3 (01:05→16:50)
[2023-03-14] MEDS: ipratropium-albuterol 3 mL Neb INHALATION ×4 (02:49→21:02)
[2023-03-14] MEDS: dextrose 5%-sod chloride 0.45% 1,000 ML 75 ML IV ×2 (02:51→16:16)
[2023-03-14] MEDS: budesonide 0.5 mg/2 mL Neb INHALATION ×2 (08:09→21:02)
[2023-03-14] MEDS: levothyroxine 100 mcg SDV 40 MCG IVP (09:34)
--- NOTE | 2023-03-14 09:57 | ECG_ITS ---
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 Measurements Intervals [place] Rate: 55 P: 75 RI: 164 QRS: 12 QRSD: 89 T: 59 QT: 426 QTc: 410 Interpretive Statements SINUS BRADYCARDIA POSSIBLE ANTERIOR MYOCARDIAL INFARCTION , OF INDETERMINATE AGE [30 ms Q WAVE IN V3/V4, OR R < 0.2 mV IN V4] Compared to ECG 03/13/2023 17:10:33 Sinus rhythm no longer present Myocardial infarct finding still present Electronically Signed On 03-15-2023 1:32:27 CDT by Enedelia Ventura M.D. [id number]
--- NOTE | 2023-03-14 11:51 | PM.PN ---
Subjective Subjective: No acute events overnight. Patient has remained hemodynamically stable and afebrile. Remains at baseline mentation being nonverbal. Remains on room air. Again noticed to have bradycardia on telemetry going down to high 40s. Difficult to determine if symptomatic or asymptomatic given baseline mental status. Vitals/I&O/Wt Last Vital Signs Temp 98.1 F 03/14/23 08:00 Pulse 49 L 03/14/23 08:09 Resp 16 03/14/23 08:09 BP 167/76 03/14/23 08:00 Pulse Ox 98 03/14/23 08:09 O2 Del Method Room Air 03/14/23 08:09 O2 Flow Rate 1 03/13/23 08:51 03/13/23 03/14/23 03/14/23 22:59 06:59 14:59 Intake Total 100 / 1635.00 1024.00 / 2659.00 Balance 100 / 1635.00 1024.00 / 2659.00 Physical Exam Const: COMMON NORMALS: no acute distress Eye: COMMON NORMALS: Equal, round and reactive pupils present PUPIL: Yes Equal, round and reactive pupils present Neck/C-Spine: COMMON NORMALS: no lymphadenopathy Resp: COMMON NORMALS: normal respiratory effort, No retractions and No use of accessory muscles AUSCULTATION: wheezes Cardio: COMMON NORMALS: regular rate, regular rhythm, S1 normal heart sound present and S2 normal heart sound present RATE: regular rate RHYTHM: regular rhythm HEART SOUNDS: S1 normal heart sound present and S2 normal heart sound present GI: COMMON NORMALS: Normal to inspection, nondistended, normoactive bowel sounds present, Soft to palpation and non-tender PALPATION: Yes Soft to palpation Extremity: COMMON NORMALS: no pedal edema Neuro: OTHER: doesnot follow neurologic testing Data 03/13/23 05:23 03/13/23 05:23 Micro: Microbiology 03/11/23 18:46 Blood Culture - Preliminary Blood 03/11/23 18:40 Blood Culture - Preliminary Blood 03/12/23 18:30 MRSA Culture - Final Nose 03/12/23 18:30 Bacterial Antigens - Final Urine Kidney A&P Assessment and plan (1) Hypoxia: In setting of aspiration pneumonia and adenovirus infection. Resolved. Keep n.p.o. for now. Appreciate speech evaluation. Patient is at high risk of aspiration with any consistency. Oxygen supplementation keeping saturation over 88%. Check MRSA swab, urine Legionella, bacterial antigen, urinalysis. Appreciate CTA results. PE ruled out. Continue with Zosyn. (2) Aspiration pneumonia: Chronic. On liquid diet at home. As per goals of care in the past no PEG tube. N.p.o. for now. (3) Hypernatremia: Most likely in setting of poor oral intake. Sodium level continues to remain high. Switch to D5 half NS at 75 cc/h. Monitor BMP daily for now. (4) Dehydration: Resolving. Secondary to poor oral intake. (5) Hypokalemia: Repleted. (6) Dementia: (7) Bradycardia: (8) Hypertension: (9) group home resident: (10) Goals of care, counseling/discussion: Plan Goals of care: Discussed in detail with patient's friend/caregiver at bedside. Patient's son is DPOA. He will be available tomorrow for a family meeting for further discussion. Points discussed about that unfortunately patient is always at a high risk of aspiration given her mental status for which she has refused PEG tube in the past along with development of hypernatremia which is from poor oral intake given her significant decline in mentation from advanced dementia. We discussed that unfortunately mental status would not improve and hypernatremia seems to be worsening chronically and with IV fluids which we will continue we will increase for short while but most likely she will develop developed hyponatremia again because of poor oral intake. We discussed about continuing current treatment versus hospice. Friend wants to discuss further in detail with patient's DPOA tomorrow. Plan for family meeting in a.m. tomorrow. Bradycardia: Patient not on any rate limiting medications. Seems to be asymptomatic. Plan for repeat EKG when ongoing bradycardia. Continue to monitor. We will discuss further as per goals for possibility of pacemaker implantation. Hypertension: Not on any antihypertensive at home. Blood pressures trending up to 170 systolics. For now start on hydralazine 10 mg IV every 4 hours as needed for systolic blood pressure more than 160 mmHg. Goal blood pressure less than 140/90 mmHg. Elevated troponins: Most likely in setting of type II VT. Repeat troponin to morning labs. Given bradycardia. Goals of care discussion: 03/14: Had extensive goals of care discussion with family including son, [id number], grandson and friend at bedside. Son is the DPOA. We discussed that unfortunately patient is having chronic advanced dementia which is progressing, recurrent aspiration event for which in the past she had refused PEG tube along with hypernatremia because of poor oral intake which is again secondary to advanced dementia. We discussed unfortunately there is no permanent treatment other than small success of improving sodium levels with IV hydration when she is hospitalized along with IV antibiotics for aspiration but on discharge even if it is normalized there is a high risk that she will be readmitted soon with either hypernatremia or other aspiration event. Options discussed were continuation of current treatment versus hospice versus comfort measures. Family states that patient at baseline has poor functional capacity and quality of life and would not want to live or prolong further. They want to transition patient to hospice care while continuing current treatment. Case management alerted. Plan for hospice care to SNF. DNR/DNI Lovenox for DVT prophylaxis Attestations Medical Necessity Statement*: Requires further hospitalization for initiation of hospice care and safe discharge planning in a patient with baseline severe dementia, chronic detention resident, recurrent aspiration events and hypernatremia secondary to poor oral intake Diagnoses Hypoxia R09.02 Aspiration pneumonia J69.0 Hypernatremia E87.0 Dehydration E86.0 Hypokalemia E87.6 Dementia F03.90 Bradycardia R00.1 Hypertension I10 group home resident Z59.3 Goals of care, counseling/discussion Z71.89
--- NOTE | 2023-03-14 14:19 | PC.SOCIAL ---
Pg 2 IMM Explained to pt's son Pg 2 IMM. No questions voiced. Provided pt a copy. Initialed, dated, & timed a copy & placed in chart.
[2023-03-14] MEDS: enoxaparin 40 mg/0.4 mL Syringe SUBCUT (22:31)
[2023-03-14] MEDS: pantoprazole 40 mg SDV IVP (22:45)
[2023-03-15] MEDS: piperacillin-tazobactam 3.375 GM in sodium chloride 0.9% (plus) 50 ML IV (01:05)
[2023-03-15 02:37] VITALS: PULSE 67; RESP 16; O2SAT 98
[2023-03-15 03:48] VITALS: BP 161/84; PULSE 65; RESP 11; TEMP 36.9; O2SAT 97
[2023-03-15 05:33] VITALS: PULSE 57
[2023-03-15] MEDS: dextrose 5%-sod chloride 0.45% 1,000 ML 75 ML IV (05:50)
[2023-03-15 08:00] VITALS: BP 175/80; PULSE 67; RESP 16; TEMP 36.5; O2SAT 98
[2023-03-15 08:24] VITALS: PULSE 58; RESP 16; O2SAT 97
--- NOTE | 2023-03-15 09:41 | PM.DCS ---
Discharge Providers Date of Admission: 03/11/23 22:33 Date of Discharge: March 15, 2023 Attending Provider at Admission: Gerardo Puente MD Attending Provider at Discharge: Selvin Anderson MD Diagnoses at Discharge Discharge Diagnosis (1) Hypoxia: Status: Acute (2) Aspiration pneumonia: Status: Acute (3) Hypernatremia: Status: Acute (4) Dehydration: Status: Acute (5) Hypokalemia: Status: Acute (6) Dementia: Status: Acute (7) Bradycardia: Status: Acute (8) Hypertension: Status: Acute (9) snf resident: Status: Acute (10) Goals of care, counseling/discussion: Status: Acute Reason for Visit Reason for Visit: RESPIRATORY DISTRESS/ POSSIBLE ASPIRATION Brief History: History as per [facility]: Brenda Ortega is a 72 year old female with as past medical history of hypothyroidism, htn, dementia, non verbal at baseline, who is on dysphagia diet, is somewhat mobile at shelter, who presents of [facility] for hypoxia and shortness of breath. Patient is nonverbal at baseline, history was obtained by family membars at [facility], according to family members [place] [facility] [place] [facility] due to concerns for hypoxia and shortness of breath and elevated blood pressure. No recent falls, or uti, she has a dysphasia diet, but recenyl she primarily has been taking her meal through a straw, and has a worsening appetite. Patient family has agreed on no peg tube. Hospital Course Hospital Course Patient was admitted to the hospital further evaluation and management of hypoxia in setting of aspiration pneumonia, adenovirus. On admission she was also found to be hypernatremic secondary to poor oral intake. She started on broad-spectrum antibiotics and IV hydration. Patient responded well to the treatment and has been on room air for last 48 hours though her mentation did not improve. There is a concern for poor mentation because of advancing dementia leading to poor oral intake and hypernatremia along with persistent concern for aspiration given her baseline mentation. Multiple goals of care discussions were done. Had extensive goals of care discussion with family including son, [id number], grandson and friend at bedside.? Son is the DPOA. We discussed that unfortunately patient is having chronic advanced dementia which is progressing, recurrent aspiration event for which in the past she had refused PEG tube along with hypernatremia because of poor oral intake which is again secondary to advanced dementia. We discussed unfortunately there is no permanent treatment other than small success of improving sodium levels with IV hydration when she is hospitalized along with IV antibiotics for aspiration but on discharge even if it is normalized there is a high risk that she will be readmitted soon with either hypernatremia or other aspiration event. Options discussed were continuation of current treatment versus hospice versus comfort measures. Family states that patient at baseline has poor functional capacity and quality of life and would not want to live or prolong further.? They want to transition patient to hospice care while continuing current treatment. Physical Exam Const: COMMON NORMALS: no acute distress Eye: COMMON NORMALS: Equal, round and reactive pupils present PUPIL: Yes Equal, round and reactive pupils present Neck/C-Spine: COMMON NORMALS: no lymphadenopathy Resp: COMMON NORMALS: normal respiratory effort, No retractions and No use of accessory muscles AUSCULTATION: wheezes Cardio: COMMON NORMALS: regular rate, regular rhythm, S1 normal heart sound present and S2 normal heart sound present RATE: regular rate RHYTHM: regular rhythm HEART SOUNDS: S1 normal heart sound present and S2 normal heart sound present GI: COMMON NORMALS: Normal to inspection, nondistended, normoactive bowel sounds present, Soft to palpation and non-tender PALPATION: Yes Soft to palpation Extremity: COMMON NORMALS: no pedal edema Neuro: OTHER: doesnot follow neurologic testing Discharge Data Studies Completed and Pending Completed Studies During Hospitalization Category Date Time Status CT head wo con* [id number] Stat Cat Scan 03/11/23 18:34 Completed CTA chest [CT angio chest PE protcl [id number]] Stat Cat Scan 03/11/23 18:34 Completed XR chest 1V portable [id number] Stat Exams 03/11/23 17:58 Completed Pending at discharge Category Date Time Status Blood Cultures ([facility]) Routine Lab 03/11/23 18:40 Results Blood Cultures ([facility]) Routine Lab 03/11/23 18:46 Results Sputum Culture and Gram Stain Stat Lab 03/11/23 22:29 Uncollected Urine Culture Stat Lab 03/12/23 18:30 Results Radiology Impressions Chest X-Ray 03/11/23 17:58 IMPRESSION: Vague densities at medial left base raise question of retrocardiac abnormality; PA and lateral views may be helpful in improving evaluation of this region. Chest CTA 03/11/23 18:34 IMPRESSION: 1. No pulmonary embolus identified. 2. [id number]-right lower lobe known pneumonia with bronchial wall thickening in distal bronchial mucoid impaction. Correlate for possible aspiration clinically. Head CT 03/11/23 18:34 IMPRESSION: Left maxillary sinus opacification with suspicion of mucocele. Generalized cerebral atrophy relatively prominent for age. No acute intracranial findings. Right middle cranial fossa arachnoid cyst unchanged. Microbiology 03/12/23 18:30 Urine,Clean Catch Urine Culture - Final Escherichia coli 03/11/23 18:46 Blood Blood Culture - Preliminary 03/11/23 18:40 Blood Blood Culture - Preliminary 03/12/23 18:30 Nose MRSA Culture - Final 03/12/23 18:30 Urine Kidney Bacterial Antigens - Final 03/12/23 18:30 Unknown Source Legionella Urinary Antigen - Final Laboratory Results WBC 7.5 10^3/uL (4.0-10.0) 03/13/23 05:23 RBC 4.55 10^6/uL (4.1-5.3) 03/13/23 05:23 Hgb 13.5 g/dL (11.5-15.3) 03/13/23 05:23 Hct 44.7 % (37.0-47.0) 03/13/23 05:23 MCV 98.2 fl (81-99) 03/13/23 05:23 MCH 29.7 pg (28.0-34.0) 03/13/23 05:23 MCHC 30.2 g/dL (30.0-36.0) 03/13/23 05:23 RDW 13.0 % (12.1-15.1) 03/13/23 05:23 Plt Count 368 10^3/cmm (130-400) 03/13/23 05:23 MPV 9.7 fL (7.4-10.4) 03/13/23 05:23 Neut % (Auto) 50.5 % 03/13/23 05:23 Lymph % (Auto) 39.6 % 03/13/23 05:23 [place] % (Auto) 6.0 % 03/13/23 05:23 Eos % (Auto) 2.6 % 03/13/23 05:23 Baso % (Auto) 0.8 % 03/13/23 05:23 Neut # (Auto) 3.76 10^3/uL (1.8-7.7) 03/13/23 05:23 Lymph # (Auto) 3.0 10^3/uL (0.8-4.8) 03/13/23 05:23 [place] # (Auto) 0.5 10^3/uL (0.2-0.9) 03/13/23 05:23 Eos # (Auto) 0.2 10^3/uL (0.0-0.8) 03/13/23 05:23 Baso # (Auto) 0.1 10^3/uL (0.0-0.1) 03/13/23 05:23 Nucleated RBC % (auto) 0 % 03/13/23: Nucleated RBCs # 0.0 /100WBC 03/13/23 05:23 Specimen Type Arterial 03/11/23 18:05 Sample Site Brachial, left 03/11/23 18:05 ABG pH 7.48 (7.35-7.45) H 03/11/23 18:05 ABG pCO2 35.5 mmHg (35-45) 03/11/23 18:05 ABG pO2 93.2 mmHg (80.0-100.0) 03/11/23 18:05 ABG HCO3 26.6 mmol/L (22-26) H 03/11/23 18:05 ABG Base Excess 3.3 mmol/L (-2.0-2.0) H 03/11/23 18:05 Kem Test N/a 03/11/23 18:05 Hematocrit 46.8 % (37-47) 03/11/23 18:05 O2 Delivery Device Nc 03/11/23 18:05 O2 Liters/Min 2.0 % 03/11/23 18:05 FiO2 28.0 % 03/11/23 18:05 Signal Operator Linguist ID rm 03/11/23 18:05 Sodium 146 mmol/L (136-145) H 03/13/23 05:23 Potassium 3.8 mmol/L (3.5-5.1) 03/13/23 05:23 Chloride 112 mmol/L (98-107) H 03/13/23 05:23 Carbon Dioxide 26 mmol/L (22-29) 03/13/23 05:23 Anion Gap 11.8 (5-19) 03/13/23 05:23 BUN 9 mg/dL (8-23) 03/13/23 05:23 Creatinine 0.7 mg/dL (0.5-0.9) 03/13/23 05:23 GFR Calculation Not Reportable 03/13/23 05:23 Glucose 112 mg/dL (65-115) 03/13/23 05:23 POC Glucose 103 mg/dL (70-110) 03/11/23 18:10 Estimat Average Glucose 91 03/13/23 05:23 Hemoglobin A1c 4.8 % (4.0-6.0) 03/13/23 05:23 Calculated Osmolality 301 mOsm/kg (285-295) H 03/13/23 05:23 Lactate 2.3 mmol/L (0.5-2.2) H 03/11/23 19:58 Calcium 8.7 mg/dL (8.5-10.5) 03/13/23 05:23 Phosphorus 2.2 mg/dL (2.5-4.5) L 03/12/23 05:23 Magnesium 2.2 mg/dL (1.7-2.3) 03/12/23 05:23 Iron 82 ug/dL (37-145) 03/12/23 05:23 TIBC 176 mcg/dl 03/12/23 05:23 % Saturation 46.5 % (20-50) 03/12/23 05:23 Unsat Iron Binding 94 ug/dL (112-347) L 03/12/23 05:23 Total Bilirubin 1.1 mg/dL (0.15-1.2) 03/13/23 05:23 AST 13 U/L (0-32) 03/13/23 05:23 ALT 13 U/L (0-33) 03/13/23 05:23 Alkaline Phosphatase 84 U/L (35-105) 03/13/23 05:23 Troponin T Gen 5 ng/L 16 ng/L (0-10) H 03/13/23 05:23 Troponin T Baseline 17 ng/L (0-10) H 03/11/23 17:33 Troponin T 120 Minute 12.46 ng/L (0-10) H 03/11/23 19:58 Delta Troponin T -4.54 ABS# (0-10) L 03/11/23 19:58 Troponin T Hi Sens 6Hr 18.19 ng/L (0-10) H 03/11/23 23:34 Troponin T Hi Sens 6Hr Delta 1.19 ng/L (0-12) 03/11/23 23:34 C-Reactive Protein 12.3 mg/L (0.0-4.9) H 03/11/23 17:33 NT-Pro-B Natriuret Pep 105 pg/mL (0-125) 03/11/23 17:33 Total Protein 5.9 g/dL (6.6-8.7) L 03/13/23 05:23 Albumin 2.8 g/dL (3.5-5.2) L 03/13/23 05:23 Globulin 3.1 g/dL (1.3-4.6) 03/13/23 05:23 Triglycerides 76 mg/dL (0-150) 03/13/23 05: Cholesterol 140 mg/dL (0-200) 03/13/23 05: LDL Cholesterol, Calc 90 mg/dL (50-129) 03/13/23 05:23 Total VLDL Cholesterol 15 mg/dL (0-30) 03/13/23 05:23 HDL Cholesterol 35 mg/dL (60-100) L 03/13/23 05:23 Cholesterol/HDL Ratio 4.00 mg/dL (0.0-4.40) 03/13/23 05:23 Vitamin B12 520 pg/mL (232-1245) 03/12/23 05:23 Folate 8.1 ng/mL (4.8-37.3) 03/12/23 05:23 Procalcitonin 0.08 ng/mL (0-0.5) 03/11/23 17:33 TSH 2.51 uIU/mL (0.27-4.20) 03/12/23 05:23 Urine Color Yellow (Yellow) 03/12/23 18:30 Urine Appearance Cloudy (CLEAR) A 03/12/23 18:30 Urine pH 8 (5-7) H 03/12/23 18:30 Ur Specific [place] 1.010 (1.005-1.030) 03/12/23 18:30 Urine Protein Trace (Negative) 03/12/23 18:30 Urine Glucose (UA) Norm (Normal) 03/12/23 18:30 Urine Ketones Negative (Negative) 03/12/23 18:30 Urine Blood 2+ (Negative) H 03/12/23 18:30 Urine Nitrate Negative (Negative) 03/12/23 18:30 Urine Bilirubin Neg (Negative) 03/12/23 18:30 Prot Sulfosalicylic Acd Negative (Negative) 03/12/23 18:30 Urine Urobilinogen Neg mg/dL (Negative) 03/12/23 18:30 Ur Leukocyte Esterase 2+ (Negative) H 03/12/23 18:30 Urine RBC 15-25 /hpf (0-2) H 03/12/23 18:30 Urine WBC Too numerous to cnt /hpf (0-5) H 03/12/23 18:30 Ur Squamous Epith Cells 0-4 /hpf (0-5) H 03/12/23 18:30 Amorphous Sediment Not Reportable 03/12/23 18:30 Urine Bacteria 1+ /hpf (NONE) H 03/12/23 18:30 Nasal Influ A H1 2009 PCR Not detected (NOT DETECT) 03/12/23 01:40 Adenovirus (PCR) Detected (NOT DETECT) A 03/12/23 01:40 C. pneumoniae DNA (PCR) Not detected (NOT DETECT) 03/12/23 01:40 Coronavirus 229E (PCR) Not detected (NOT DETECT) 03/12/23 01:40 Human Metapneumovir PCR Not detected (NOT DETECT) 03/12/23 01:40 Influenza A (H1) PCR Not detected (NOT DETECT) 03/12/23 01:40 Influenza A (H3) PCR Not detected (NOT DETECT) 03/12/23 01:40 Influenza Type A (PCR) Not detected (NOT DETECT) 03/12/23 01:40 Influenza Type B (PCR) Not detected (NOT DETECT) 03/12/23 01:40 M. pneumoniae (PCR) Not detected (NOT DETECT) 03/12/23 01:40 Parainfluenza 1 (PCR) Not detected (NOT DETECT) 03/12/23 01:40 Parainfluenza 2 (PCR) Not detected (NOT DETECT) 03/12/23 01:40 Parainfluenza 3 (PCR) Not detected (NOT DETECT) 03/12/23 01:40 Parainfluenza 4 (PCR) Not detected (NOT DETECT) 03/12/23 01:40 RSV Type A (PCR) Not detected (NOT DETECT) 03/12/23 01:40 RSV Type B (PCR) Not detected (NOT DETECT) 03/12/23 01:40 Entero/Rhino (PCR) Not detected (NOT DETECT) 03/12/23 01:40 SARS-CoV-2 (PCR) Not detected (NOT DETECT) 03/12/23 01:40 Vitals Last Vital Signs Temp 97.7 F 03/15/23 08:00 Pulse 58 L 03/15/23 08:24 Resp 16 03/15/23 08:24 BP 175/80 03/15/23 08:00 Pulse Ox 97 03/15/23 08:24 O2 Del Method Room Air 03/15/23 08:24 O2 Flow Rate 1 03/13/23 08:51 Discharge Plan Discharge Patient Disposition: Hospice - Medical Facility Condition: Stable Prescriptions: New levofloxacin 500 mg tablet 500 mg PO Q24H 5 Days Qty: 5 0RF Continued amlodipine 2.5 mg tablet 2.5 mg PO DAILY Qty: 90 3RF memantine 10 mg tablet 10 mg PO BID Qty: 60 6RF levothyroxine 88 mcg tablet 88 mcg PO DAILY Qty: 30 3RF docusate sodium 50 mg/5 mL Liquid 200 mg PO BEDTIME Tylenol 325 mg Tablet 650 mg PO Q4H PRN (Reason: Pain) ipratropium-albuterol 0.5 mg-3 mg(2.5 mg base)/3 mL solution for nebulization 3 ml INHALATION Q4H PRN (Reason: Congestion) albuterol sulfate 2.5 mg /3 mL (0.083 %) solution for nebulization 2.5 mg inhalation QID Rx Instructions: after meals and bedtime Milk of Magnesia 400 mg/5 mL Suspension 30 ml PO DAILY PRN (Reason: Constipation) Dulcolax (bisacodyl) 10 mg Suppository 10 mg [place] DAILY PRN (Reason: Constipation) Fleet Enema 19-7 gram/118 mL Enema 118 ml [place] DAILY PRN (Reason: Constipation) Claritin 10 mg Tablet 10 mg PO DAILY Discharge Orders: Discharge Order (Routine); Ordered 03/15/23 Ordered By: Selvin Anderson Referrals: [facility] [Outside] [facility] [Outside] Stephen John MD [Physician] - Discharge Diet: As Directed Discharge Activity: Resume usual activity and Increase activity as tolerated Patient Instructions: Opioid Safety Activity Restrictions/Additional Instructions: Clear liquid diet Discharge Attestations Time Spent in Discharge Care*: greater than 30 min Specific Discharge Activities: educating and/or supporting family/caregiver, discussing with pcp/other providers, discussing with case preparer and liner/social workers/dc planners, documenting/other paperwork and evaluating patient/reviewing data Status at Discharge: Cognitive status at discharge: severely impaired cognition, Behavioral status at discharge: cooperative, Functional status at discharge: bed bound, Overall status at discharge: patient is back to baseline Quality Metrics Clinical Quality Measures [ No reported AMI, CVA or VTE this stay] Coding Level of Care Code 64806 Total time (in minutes) for Discharge: 50 Diagnoses Hypoxia R09.02 Aspiration pneumonia J69.0 Hypernatremia E87.0 Dehydration E86.0 Hypokalemia E87.6 Dementia F03.90 Bradycardia R00.1 Hypertension I10 snf resident Z59.3 Goals of care, counseling/discussion Z71.89
[2023-03-15 11:29] LABS: SARS Covid-2 Antigen negative (Negative)
[2023-03-15 14:23] VITALS: PULSE 55; RESP 16; O2SAT 98
== END 2023-03-15 15:06 | disposition hospice, home (50) | DRG 177 ==
LOC: ER 22:18 → MEDSURG 22:33
PROVIDERS: Admitting Provider Family Medicine; Emergency Provider Emergency Medicine; Visit Provider Student in an Organized Health Care Education/Training Program
DX: J69.0 Pneumonitis due to inhalation of food and vomit (principal); I21.A1 Myocardial infarction type 2; E87.0 Hyperosmolality and hypernatremia; E03.9 Hypothyroidism, unspecified; I10 Essential (primary) hypertension; F03.90 Unspecified dementia, unspecified severity, without behavioral disturbance, psychotic disturbance, mood disturbance, and anxiety; R13.10 Dysphagia, unspecified; Z79.51 Long term (current) use of inhaled steroids; E86.0 Dehydration; E87.6 Hypokalemia; Z66 Do not resuscitate
CPT/HCPCS: 36415; 36416; 36600; 70450; 71045; 71275; 80048; 80053; 80061; 81001; 82607; 82746; 82803; 82962; 83036; 83540; 83550; 83605; 83735; 83880; 84100; 84145; 84443; 84484; 85025; 86140; 86403; 87040; 87077; 87086; 87186; 87426; 87449; 87486; 87581; 87633; 87641; 92610; 93005; 94640; 94664; 96365; 96366; 96367; 96372; 97161; 97165; 97530; 99285; C9113; J0696; J1650; J2543; J3480; J3490; J7030; J7042; J7120; J7626; J7799; Q9967

== ENCOUNTER 2023-09-13 21:58 | Emergency (ER) | payer OTHER, SELFPAY ==
[2023-09-13 22:00] VITALS: BP 175/89; PULSE 78; RESP 20; TEMP 36.8; O2SAT 99; BMI 16.6
[2023-09-13 22:09] VITALS: BP 175/89; PULSE 77; RESP 14; O2SAT 99
--- NOTE | 2023-09-13 22:32 | CTR_ITS ---
PROCEDURE INFORMATION: Exam: CT Head Without Contrast Exam date and time: 09/13/2023 10:43 PM Age: 72 years old Clinical indication: Injury or trauma; Blunt trauma (contusions or hematomas); Patient HX: From [facility] for fall out of bed. Lac to RT eyebrow. Patient non verbal. ; Additional info: Fall head inj TECHNIQUE: Imaging protocol: Computed tomography of the head without contrast. Radiation optimization: All CT scans at this facility use at least one of these dose optimization techniques: automated exposure control; mA and/or kV adjustment per patient size (includes targeted exams where dose is matched to clinical indication); or iterative reconstruction. REPORTING DATA: Count of CT and Cardiac NM exams in prior 12 months: This patient has received 2 known CTs and 0 known cardiac nuclear medicine studies in the 12 months prior to the current study. COMPARISON: CT head wo con* [id number] 03/11/2023 8:09 PM RADIATION DOSE METRICS: Total DLP (mGy-cm): 1233.08 FINDINGS: Brain: No focal hemorrhage or midline shift is identified. The ventricles and parenchyma show severe atrophy and chronic bicerebral white matter ischemic change. Right middle cranial fossa arachnoid cyst measures up to about 3.7 cm. A few scattered old lacunes are likely. Cerebral ventricles: No ventriculomegaly or evidence of hydrocephalus. Paranasal sinuses: No evidence of acute sinusitis. Mastoid air cells: Visualized mastoid air cells are well aerated. Bones/joints: No displaced skull fracture is noted. Soft tissues: Unremarkable. Vasculature: Diffuse vascular calcifications are present. CT/CT head wo con* [id number] IMPRESSION: 1. No acute intracranial abnormality. 2. Severe age-related changes. Other chronic findings. 3. Resolved left maxillary sinus disease.
--- NOTE | 2023-09-14 00:14 | W.ED.FALL ---
HPI - Fall General: Chief Complaint: Fall Stated Complaint: FALL Time Seen by Provider: 09/13/23 22:03 History of Present Illness: 73-year-old female senior living patient with a history of dementia. She presents after falling out of bed. She struck her eyebrow, causing a laceration. She also evidently struck her elbow causing some skin tearing. She is nonverbal, and therefore does not complain of anything. prison report denied recent illness or fever, etc. Family joins the patient at the bedside a bit later, and notes that she had not been acutely ill otherwise, but is obviously quite frail. Review of Systems General: Reports: ROS unobtainable due to medical condition PFSH ED PFSH: Medical History Aspiration pneumonia At high risk for aspiration Hypertension Hypothyroid prison resident Surgical History No pertinent past surgical history Family History Other Diabetes Heart disease Social History Smoking and tobacco/nicotine status: never used tobacco/nicotine Alcohol intake: former Physical Exam Const: GENERAL APPEARANCE: frail appearing; not ill appearing ORIENTATION/CONSCIOUSNESS: Yes awake and Yes Other orientation findings (non verbal, does not follow commands. ) HENMT: COMMON NORMALS: Normal external nose present HEAD & SCALP: contusion (Right lateral periorbital) and laceration (3 cm right lateral periorbital) FACE & SINUS: face symmetric NOSE: Normal external nose present Eye: COMMON NORMALS: Equal, round and reactive pupils present and EOMs intact bilaterally PUPIL: Yes Equal, round and reactive pupils present Neck/C-Spine: GENERAL: Yes trachea midline Chest: CHEST: Yes Symmetrical chest wall rise Resp: COMMON NORMALS: normal respiratory effort, No retractions, No use of accessory muscles and clear to auscultation bilaterally AUSCULTATION: clear to auscultation bilaterally Cardio: COMMON NORMALS: regular rate and regular rhythm RATE: regular rate RHYTHM: regular rhythm GI: COMMON NORMALS: Normal to inspection, nondistended, normoactive bowel sounds present and Soft to palpation PALPATION: Yes Soft to palpation Extremity: NARRATIVE EXTREMITY EXAM: Atraumatic Neuro: HARMAN COMA SCALE: document GCS findings Harman coma scale eye opening: Spontaneous Harman coma scale verbal response: Sounds Harman coma scale motor response: Localising [place] coma scale total score: 11 Skin: NARRATIVE SKIN EXAM: See above Procedures Laceration Laceration 1: Site: face Side (If applicable): right Size (cm): 4 Description: linear Depth: simple, single layer Local Anesthetic: lidocaine 1% and with epi Amount of anesthesia used (mL): 6 Pre-repair: wound explored, irrigated extensively and deep structures intact Skin layer closed with: nylon Size (cm): 5-0 Technique: simple, interrupted Course Vital Signs: Vital signs: Vital Signs Temperature 98.3 F 09/13/23 22:00 Pulse Rate 77 09/13/23 22:09 Respiratory Rate 14 09/13/23 22:09 Blood Pressure 175/89 09/13/23 22:09 Pulse Oximetry 99 09/13/23 22:09 Oxygen Delivery Me thod Room Air 09/13/23 22:09 MDM - Fall Medical Decision Making Laceration is repaired. She tolerated well. Skin tears covered. She will be allowed back to the senior living. Her vitals have been stable here. Lab Data Radiology Impressions Head CT 09/13/23 22:32 IMPRESSION: 1. No acute intracranial abnormality. 2. Severe age-related changes. Other chronic findings. 3. Resolved left maxillary sinus disease. All radiology interpretation(s) finalized by discharge Discharge Plan Discharge Patient Disposition: Home Clinical Impression: Facial laceration, Contusion of face, Contusion of elbow, right Condition: Stable Prescriptions: No Action amlodipine 2.5 mg tablet 2.5 mg PO DAILY Qty: 90 3RF memantine 10 mg tablet 10 mg PO BID Qty: 60 6RF levothyroxine 88 mcg tablet 88 mcg PO DAILY Qty: 30 3RF docusate sodium 50 mg/5 mL Liquid 200 mg PO BEDTIME Tylenol 325 mg Tablet 650 mg PO Q4H PRN (Reason: Pain) ipratropium-albuterol 0.5 mg-3 mg(2.5 mg base)/3 mL solution for nebulization 3 ml INHALATION Q4H PRN (Reason: Congestion) albuterol sulfate 2.5 mg /3 mL (0.083 %) solution for nebulization 2.5 mg inhalation QID Rx Instructions: after meals and bedtime Milk of Magnesia 400 mg/5 mL Suspension 30 ml PO DAILY PRN (Reason: Constipation) Dulcolax (bisacodyl) 10 mg Suppository 10 mg [place] DAILY PRN (Reason: Constipation) Fleet Enema 19-7 gram/118 mL Enema 118 ml [place] DAILY PRN (Reason: Constipation) Claritin 10 mg Tablet 10 mg PO DAILY Discharge Orders: Discharge ED (Routine); Ordered 09/14/23 Ordered By: Mulugeta Barrett Referrals: Tom Bedoya Jr, MD [Primary Care Provider] - 4-7 days Patient Instructions: Facial Contusion (ED), Facial Laceration (ED) Activity Restrictions/Additional Instructions: Sutures out in 5 to 7 days. Return for any new or concerning symptoms. Coding Level of Care Code ED Graphic Coordinator for [place] Matson
--- NOTE | 2023-09-14 00:32 | PC.NURSE ---
[facility] in [place], [place] was contacted and report was given to Anny Donovan (RN).
== END 2023-09-14 01:57 | disposition home or self-care (01) ==
PROVIDERS: Emergency Provider Emergency Medicine; PCP Family Medicine
DX: S50.01XA Contusion of right elbow, initial encounter (principal); S00.83XA Contusion of other part of head, initial encounter; S01.111A Laceration without foreign body of right eyelid and periocular area, initial encounter; I10 Essential (primary) hypertension; W06.XXXA Fall from bed, initial encounter
CPT/HCPCS: 12013; 70450; 99284